=== PATIENT | female | born 1985 | race Hispanic/Latino ===

== ENCOUNTER 2019-08-26 18:17 | Observation (INO) | payer OTHER, SELFPAY ==
[2019-08-26 21:35] VITALS: BMI 44.4
[2019-08-26] MEDS ORDERED: Ibuprofen 800 MG TAB PO SCH (22:45)
[2019-08-26] MEDS ORDERED: Ondansetron ODT 4 MG TAB PO PRN (23:15)
[2019-08-27] MEDS: Sodium Chloride 0.9% 1,000 ML IV SCH ×3 (02:05→14:29)
[2019-08-27 02:14] VITALS: TEMP 97.8
--- NOTE | 2019-08-27 04:09 | PDOC.FPRHP ---
Addendum entered and electronically signed by Mehdi Tovar MD 08/27/19 04:11: carotids patent on CTA Original Note: - Allergies/Adverse Reactions Allergies Allergy/AdvReac Type Severity Reaction Status Date / Time No Known Allergies Allergy Verified 08/26/19 21:42 - Home Medications Medication Instructions Recorded Confirmed Type Ibuprofen [Motrin] 600 mg PO Q6HR PRN 08/26/19 08/26/19 History - History PMHx: PSHx: FHx: Social: - Vital signs BP: [] HR: [] RR: [] Tmax: [] Pox: []% on [] Wt: [] FMR H&P: Results - Labs Result Diagrams: 08/27/19 04:31 08/27/19 04:31 FMR H&P: Upper Level - Plan Date/Time: 08/27/19 0409 PCP: ELIANA HPI: This is a 33 yo F admitted for TIA r/o. She denies any significant PMH. She states that this afternoon she had sudden onset left-sided numbness affecting her face, arm, and leg. She denied any slurred speech or weakness. She states that she has been having this happening for 1-2 seconds for a week or so. Additionally, she has had headache coming and going for the last week or so, much improved after Tylenol and ibuprofen. Denies photophobia, N/V, or scotoma. She states she has had shortness of breath for about 2 weeks. Denies fever, sick contacts, loss of taste, or GI sypmtoms. PMH: denies HTN, DM PSH: denies surgeries Meds: none Allergies: NKDA Soc Hx: denies smoking, alcohol, drugs Fm hx: denies family history of stroke or heart disease REVIEW OF SYSTEMS: Gen: no fever, chills, or sweats Neuro: see hpi Eyes: no visual changes ENT: no hearing changes, no sore throat, no congestion Resp: denies cough, SOB Card: palpitations or chest pain GI: no N/V/D, no abdominal pain Heme: no easy bruising/bleeding, no blood thinners Skin: no rash, no erythema Vitals: T97.8 P78 BP 127/80 R 18 95 on RA PHYSICAL EXAMINATION: General: NAD, alert and oriented x3 HEENT: PERRLA, EOMI, normal sclera, oropharynx without erythema or exudate Neck: Supple. Full ROM. Heart/Cardiovascular System: RRR, Cap refill < 3 seconds, no rub, no murmur Lungs/Respiratory System: CTA-B, no resp distress Abdomen/Gastro-Intestinal System: no abdominal tenderness, normal bowel sounds Extremities: Warm extremities. No cyanosis or edema Neuro: No gross deficits appreciated. CN 2-12 grossly intact, NIHSS:0, strength intact bilaterally, no drift Psychiatry: Awake, Alert and cooperative with exam Skin: No lesions, rashes, or ulcers Musculoskeletal: Full ROM A/P: # TIA r/o - CTA brain negative - MRI ordered 2/2 suspicious history - No carotid bruit, low age, will not order carotid Doppler at this time - Risk stratification labs, ASA - Headache not consistent with migraine, well controlled with NSAIDS, Tylenol - Anxiety w/ panic disorder is on differential # COVID PUI - 2 weeks of SOB, low suspicion Fluids: NS 100ml/hr Code: Full PPx: scd Dispo: anticipate d/c home after MRI Addendum - Attending - Attending Attestation Date/Time: 08/27/19 2834 I personally evaluated the patient and discussed the management with Dr. Tovar. I agree with the History, Examination, Assessment and Plan documented above with any addition or exceptions noted below.
[2019-08-27 05:28] LABS: #Basophils 0.1 thou/uL (0.0-0.2); #Eosinphils 0.3 thou/uL (0.0-0.7); #Lymphocytes 3.8 thou/uL (1.20-3.40); #Monocytes 0.8 thou/uL (0.11-0.59); #Neutrophils 6.3 thou/uL (1.40-6.50); %Basophils 1.3 % (0.0-1.0); %Eosinophils 2.6 % (0.0-10.0); %Lymphocytes 33.4 % (21.0-51.0); %Monocytes 6.9 % (0.0-10.0); %Neutrophils 55.9 % (42.0-75.0); Hemoglobin 13.7 g/dL (12.0-16.0); Mean Corpuscular Hemoglobin 30.3 pg (27.0-31.0); Mean Corpuscular Volume 94.7 fL (78.0-98.0); Mean Platelet Volume 9.8 fL (7.4-10.4); Platelet Count 317 thou/uL (130-400); RBC Distribution Width 11.6 % (11.5-14.5); Red Blood Cell (RBC) Count 4.51 mill/uL (4.20-5.40); White Blood Cell (WBC) Count 11.4 thou/uL (4.8-10.8)
[2019-08-27 05:35] LABS: Hemoglobin A1c 5.2 % (4.0-6.0)
[2019-08-27 05:48] LABS: ALT (SGPT) 15 U/L (8-55); AST (SGOT) 13 U/L (5-34); Albumin 3.9 g/dL (3.5-5.0); Alkaline Phosphatase 61 U/L (40-110); Anion Gap 12 mmol/L (10-20); BUN (Urea Nitrogen) 9 mg/dL (7.0-18.7); Bilirubin, Total 0.3 mg/dL (0.2-1.2); Calc. Creatinine Clearance 254 mL/min (70-130); Calcium 9.1 mg/dL (7.8-10.44); Carbon Dioxide 27 mmol/L (22-29); Cardiac Risk 3.7 (Less than 4.5); Chloride 106 mmol/L (98-107); Cholesterol 146 mg/dl (< 200 Desired); Estimated GFR-MDRD Greater than 90; Globulin 2.8 g/dL (2.4-3.5); Glucose 87 mg/dL (70-105); HDL Cholesterol 39 mg/dL (>60 Neg Risk); LDL Cholesterol, Calculated 81 mg/dL; Potassium 3.7 mmol/L (3.5-5.1); Protein, Total 6.7 g/dL (6.0-8.3); Sodium 141 mmol/L (136-145); Triglycerides 128 mg/dL (Less than 150)
--- NOTE | 2019-08-27 07:20 | PDOC.FM ---
- Subjective Subjective: Patient reports her numbness and tingling is resolved. She feels well this morning. No other complaints overnight. - Objective Vital Signs & Weight: Vital Signs (12 hours) Temp Pulse Resp BP BP Pulse Ox 08/27/19 02:07 97.8 F 78 18 94/52 L 95 08/26/19 21:34 98.0 F 79 14 127/80 98 Weight Weight 128.548 kg I&O: 08/26/19 08/27/19 08/28/19 06:59 06:59 06:59 Intake Total 1454 Output Total 1400 Balance 54 Result Diagrams: 08/27/19 04:31 08/27/19 04:31 Phys Exam - Physical Examination Constitutional: NAD HEENT: PERRLA, moist MMs, oral pharynx no lesions Respiratory: no wheezing, clear to auscultation bilateral Cardiovascular: RRR, no significant murmur Gastrointestinal: soft, non-tender, positive bowel sounds obese Musculoskeletal: pulses present Neurological: non-focal, moves all 4 limbs Psychiatric: normal affect, A&O x 3 CN 2-12 grossly intact Skin: normal turgor, cap refill <2 seconds Dx/Plan (1) Person under investigation for COVID-19 Code(s): Z20.828 - CONTACT W AND EXPOSURE TO OTH VIRAL COMMUNICABLE DISEASES Status: Acute - Plan Plan: TIA r/o -L sided face/arm/leg numbness resolved, lasted 30 minutes yesterday -CTA head/neck neg -ASA -A1C normal, TSH slightly elevated, T4 pending; -FLP HDL low 39, otherwise WNL -Headache not consistent with migraine, no n/v, photophobia, or scotoma -High suspicion for anxiety, although pt denies history of anxiety/depression, she does state she has been nervous about coronavirus COVID PUI -2 weeks of SOB -Low suspicion Vitiligo -Pt reports no other autoimmune diseases in her family. Denies FH of DM or thyroid disease Fluids: SL Diet: HH Ppx: SCDs PCP: CC Dispo: Likely home after MRI results today Shelley Tovar MD Addendum - Attending - Attending Attestation Date/Time: 08/27/19 3948 I personally evaluated the patient and discussed the management with Dr. Tovar. I agree with the History, Examination, Assessment and Plan documented above with any addition or exceptions noted below. neurological deficits resolved. MRI pending. If negative, d/c home.
[2019-08-27] MEDS ORDERED: Potassium Chloride 20 MEQ TAB PO SCH (08:00)
[2019-08-27] MEDS ORDERED: Aspirin 81 mg Enteric Coated Tablet PO SCH (09:00)
[2019-08-27 10:11] LABS: SARS-CoV-2 MS2 Positive; SARS-CoV-2 N Gene Negative; SARS-CoV-2 S Gene Negative; SARS-CoV-2 orf1ab Negative
--- NOTE | 2019-08-27 13:09 | MRI ---
MRI OF THE BRAIN WITHOUT CONTRAST: Date: 08/27/2019 INDICATION: History of TIA. COMPARISON: Prior CT of the brain dated 08/26/2019. FINDINGS: No area of restricted diffusion is seen to suggest the presence of acute infarction. Septum pellucidu m and third ventricle are midline. There are appropriate flow-voids seen within the major intracrania l vessels. Small partial effusion is seen within the mastoid air cells. Skull is intact. IMPRESSION: 1. No acute intracranial abnormality. 2. Small partial effusions of the mastoid air cells. POS: BH
[2019-08-27 13:36] VITALS: BP 108/59
[2019-08-27] MEDS ORDERED: Atorvastatin Calcium 40 MG TAB PO SCH (21:00)
--- NOTE | 2019-08-28 11:40 | DIS ---
DATE OF ADMISSION: 08/26/2019 DATE OF DISCHARGE: 08/27/2019 RESIDENT: Jessica Tovar MD ADMITTING ATTENDING: Shirley Saunders MD DISCHARGE ATTENDING: Quinton Reynoso MD CONSULTS: None. PROCEDURES: Brain MRI on 08/27/2019. Impression: 1. No acute intracranial abnormality. 2. Small partial effusions of the mastoid air cells. PRIMARY DIAGNOSIS: Possible transient ischemic attack. SECONDARY DIAGNOSES: 1. COVID person under investigation. 2. Vitiligo. 3. Obesity. DISCHARGE MEDICATIONS: Ibuprofen 600 mg p.o. q.6 hours p.r.n. for pain or headache. DISCONTINUED MEDICATIONS: None. HISTORY OF PRESENT ILLNESS/HOSPITAL COURSE: This is a 33-year-old female, who was admitted for a TIA rule out. She denies any significant past medical history. She states that that afternoon she had sudden onset left-sided numbness affecting her face, arm and leg. She denied any slurred speech or weakness. She states that this has been happening for 1-2 seconds for a week or so. Additionally, the patient reported intermittent headache for the last two weeks that improved after Tylenol and ibuprofen. The patient denied photophobia, nausea, vomiting or scotoma. The patient reported shortness of breath for about two weeks. She denied fever, sick contacts, loss of taste, or GI symptoms. The patient was transferred from another hospital. There, she had a CTA of her head and neck that was negative. The patient was transferred here, where an MRI was done, which showed no acute abnormalities. Her headache was not consistent with migraines, so it is unlikely that this was a complex migraine. During her stay, her symptoms resolved. Her NIH was zero. Her symptoms were either due to TIA which is unlikely with a completely normal CTA head/neck vs possible anxiety vs conversion disorder vs other cause. The patient was also tested for COVID due to the two weeks of shortness of breath, which returned negative. The patient was discharged to home in stable condition. DISPOSITION: Stable. DISCHARGE INSTRUCTIONS: 1. Location: Home. 2. Diet: Heart healthy. 3. Activity: As tolerated. 4. Followup: With primary care doctor within 1 week. Job ID: [id number] [facility]
== END 2019-08-27 16:03 | disposition home or self-care (01) ==
LOC: 2SW 21:29
PROVIDERS: ADMIT Family Medicine; ATTEND Family Medicine
DX: R20.0 Anesthesia of skin (principal); R51 Headache; L80 Vitiligo; R06.02 Shortness of breath; E66.9 Obesity, unspecified; Z68.41 Body mass index [BMI] 40.0-44.9, adult; Z20.828 Contact with and (suspected) exposure to other viral communicable diseases
CPT/HCPCS: 36415; 70551; 80053; 80061; 83036; 84439; 84443; 85025; 87635; 96360; 96361; G0378; U0003

== ENCOUNTER 2019-09-03 08:58 | Observation (INO) | payer SELFPAY ==
[2019-09-03] MEDS ORDERED: Ondansetron PF 4 MG/2 ML Vial ONE (09:28)
[2019-09-03 09:52] LABS: #Basophils 0.1 thou/uL (0.0-0.2); #Eosinphils 0.4 thou/uL (0.0-0.7); #Lymphocytes 3.9 thou/uL (1.20-3.40); #Monocytes 0.6 thou/uL (0.11-0.59); #Neutrophils 4.9 thou/uL (1.40-6.50); %Basophils 1.3 % (0.0-1.0); %Eosinophils 3.7 % (0.0-10.0); %Lymphocytes 39.6 % (21.0-51.0); %Monocytes 5.9 % (0.0-10.0); %Neutrophils 49.6 % (42.0-75.0); Hemoglobin 14.2 g/dL (12.0-16.0); Mean Corpuscular HGB CONC 33.2 g/dL (32.0-36.0); Mean Corpuscular Hemoglobin 30.8 pg (27.0-31.0); Mean Corpuscular Volume 92.7 fL (78.0-98.0); Mean Platelet Volume 8.6 fL (7.4-10.4); Platelet Count 318 thou/uL (130-400); RBC Distribution Width 11.4 % (11.5-14.5); Red Blood Cell (RBC) Count 4.63 mill/uL (4.20-5.40); White Blood Cell (WBC) Count 9.9 thou/uL (4.8-10.8)
[2019-09-03 10:01] LABS: BHCG - Serum Negative (NEGATIVE); Pregs Control Background? CLEAR/WHITE (CLR/WHITE); Pregs Control Bar Appear? YES (CONTROL BAR)
[2019-09-03 10:02] LABS: Acetaminophen Less than 6.0 mcg/mL (10.0-30.0); Alcohol Less than 10 mg/dL (Less than 10); CK (CPK) 49 U/L (29-168); Salicylate Less than 8.0 mg/dL (15.0-30.0)
[2019-09-03 10:03] LABS: ALT (SGPT) 27 U/L (8-55); AST (SGOT) 17 U/L (5-34); Albumin 4.4 g/dL (3.5-5.0); Alkaline Phosphatase 73 U/L (40-110); Anion Gap 15 mmol/L (10-20); BUN (Urea Nitrogen) 9 mg/dL (7.0-18.7); Bilirubin, Total 0.2 mg/dL (0.2-1.2); Calc. Creatinine Clearance 0 mL/min (70-130); Calcium 9.4 mg/dL (7.8-10.44); Carbon Dioxide 25 mmol/L (22-29); Chloride 102 mmol/L (98-107); Estimated GFR-MDRD Greater than 90; Globulin 3.1 g/dL (2.4-3.5); Glucose 111 mg/dL (70-105); Potassium 3.5 mmol/L (3.5-5.1); Protein, Total 7.5 g/dL (6.0-8.3); Sodium 138 mmol/L (136-145)
[2019-09-03] MEDS ORDERED: Metoclopramide HCl 10 MG/2 ML VIAL ONE (10:07)
[2019-09-03] MEDS ORDERED: diphenhydrAMINE 50 MG/ML VIAL ONE (10:07)
[2019-09-03] MEDS ORDERED: Lorazepam 2 MG/ML VIAL ONE (10:32)
[2019-09-03 12:04] LABS: Bilirubin Negative (Negative); Blood, Urine Negative (Negative); Clarity Clear (Clear); Glucose, Urine (Dipstick) Normal (Negative); Leukocyte 25 Leu/uL (Negative); Nitrite Negative (Negative); Protein, Urine (Dipstick) Negative (Neg-Trace); RBC/HPF 0-3 HPF (0-3); Squamous Epithelial 0-3 HPF (0-3); Urobilinogen Normal mg/dL (Less than 2); WBC/HPF 0-3 HPF (0-3)
[2019-09-03 12:11] LABS: Bacteria/HPF 1+ HPF (None Seen)
[2019-09-03 12:13] LABS: Amphetamine Not Detected (NotDetected); Barbiturates Screen Not Detected (NotDetected); Benzodiazepine Screen Not Detected (NotDetected); Cocaine Metabolite Screen Not Detected (NotDetected); Medtox Control Line Valid? VALID (VALID); Medtox Reader # READER 1; Methadone Not Detected (NotDetected); Methamphetamine Not Detected (NotDetected); Opiate Screen Not Detected (NotDetected); Oxycodone Screen Not Detected (NotDetected); Phencyclidine (PCP) Not Detected (NotDetected); THC/Cannabinoid Screen Not Detected (NotDetected); Tricyclic Screen Not Detected (NotDetected)
[2019-09-03] MEDS ORDERED: Ketorolac Tromethamine 30 MG/ML VIAL ONE (12:55)
[2019-09-03] MEDS ORDERED: methylPREDNISolone Sod Succ/PF 125 MG/2 ML VIAL ONE (12:55)
[2019-09-03] MEDS ORDERED: Magnesium 2 GM/50 ML BAG (IN WATER) ONE (12:55)
--- NOTE | 2019-09-03 12:55 | CT ---
HEAD CT: Date: 09-03-2019 Comparison: 08-31-2019 History: Difficulty speaking and moving. Technique: Axial CT imaging is obtained at 5 mm intervals from vertex through skull base without cont rast. FINDINGS: There is no intracranial hemorrhage, midline shift, mass effect, or ventricular enlargement. The imaged paranasal sinuses and mastoid air cells are well aerated. There is no displaced calvarial fracture. IMPRESSION: No acute findings - stable head CT. POS: ZENOBIA
--- NOTE | 2019-09-03 12:56 | RAD ---
FRONTAL RADIOGRAPH CHEST: Date: 09-03-2019 Comparison: 08-26-2019 History: Difficulty speaking and moving. FINDINGS: Heart and mediastinal contours are stable. Lungs appear clear. IMPRESSION: No acute findings. POS: ZENOBIA
--- NOTE | 2019-09-03 13:31 | PDOC.FPRHP ---
- History of Present Illness Chief Complaint: AMS History of Present Illness: Pt is a 33 yo female who presents for altered mental status noted in the emergency department. In the ED she had difficulty answering questions and had dramatic/erratic arm movements. She has had a headache over the last 2-3 weeks. She was discharged from our facility at the beginning of this month for similar symptoms. Her brain CT and and MRI were negative. She was discharged from the ED on 08/31/[address] head. She was discharged with ibuprofen. CC - [facility] ED Course: CT head negative. - Allergies/Adverse Reactions Allergies Allergy/AdvReac Type Severity Reaction Status Date / Time No Known Allergies Allergy Verified 08/26/19 21:42 - Home Medications Medication Instructions Recorded Confirmed Type Ibuprofen [Motrin] 600 mg PO Q6HR PRN 08/26/19 08/26/19 History - History PMHx: none PSHx: none FHx: no hx of stroke or heart disease Social: denies smoking, alcohol, drugs - Vital signs BP: 128/85 HR: 78 RR: 20 Tmax: 98.7 Pox: 100% on RA Wt: 127.9 kg FMR H&P: Results - Labs Result Diagrams: 09/03/19 09:40 09/03/19 09:40 Lab results: WBC 9.9 thou/uL (4.8-10.8) 09/03/19 09:40 Hgb 14.2 g/dL (12.0-16.0) 09/03/19 09:40 Hct 42.9 % (36.0-47.0) 09/03/19 09:40 MCV 92.7 fL (78.0-98.0) 09/03/19 09:40 Plt Count 318 thou/uL (130-400) 09/03/19 09:40 Neutrophils % 49.6 % (42.0-75.0) 09/03/19 09:40 Sodium 138 mmol/L (136-145) 09/03/19 09:40 Potassium 3.5 mmol/L (3.5-5.1) 09/03/19 09:40 Chloride 102 mmol/L (98-107) 09/03/19 09:40 Carbon Dioxide 25 mmol/L (22-29) 09/03/19 09:40 BUN 9 mg/dL (7.0-18.7) 09/03/19 09:40 Creatinine 0.66 mg/dL (0.6-1.1) 09/03/19 09:40 Glucose 111 mg/dL (70-105) H 09/03/19 09:40 Calcium 9.4 mg/dL (7.8-10.44) 09/03/19 09:40 Total Bilirubin 0.2 mg/dL (0.2-1.2) 09/03/19 09:40 AST 17 U/L (5-34) 09/03/19 09:40 ALT 27 U/L (8-55) 09/03/19 09:40 Alkaline Phosphatase 73 U/L (40-110) 09/03/19 09:40 Creatine Kinase 49 U/L (29-168) 09/03/19 09:40 Serum Total Protein 7.5 g/dL (6.0-8.3) 09/03/19 09:40 Albumin 4.4 g/dL (3.5-5.0) 09/03/19 09:40 Urine Ketones Negative mg/dL (Negative) 09/03/19 11:57 Urine Blood Negative (Negative) 09/03/19 11:57 Urine Nitrite Negative (Negative) 09/03/19 11:57 Ur Leukocyte Esterase 25 Dandre/uL (Negative) 09/03/19 11:57 Urine RBC 0-3 HPF (0-3) 09/03/19 11:57 Urine WBC 0-3 HPF (0-3) 09/03/19 11:57 Ur Squamous Epith Cells 0-3 HPF (0-3) 09/03/19 11:57 Urine Bacteria 1+ HPF (None Seen) A 09/03/19 11:57 - Radiology Interpretation CT scan - head Status: image reviewed by me, report reviewed by me Additional comment: no acute abnormalities Chest x-ray Status: image reviewed by me, report reviewed by me Additional comment: no acute abnormalities FMR H&P: A/P - Problem List (1) Intractable headache Current Visit: Yes Status: Acute Code(s): R51 - HEADACHE - Plan Pt is a 33 yo female with hx of BECERRA x 2 weeks: # Intractable BECERRA # Encephalopathy Likely secondary to a complex migraine. # Recently tested for COVID - negative Dispo: admit to neuro, obs VTE: SCD's Diet: reg Fluids: SL Code: Full FMR H&P: Upper Level - Plan Date/Time: 09/03/19 1329 I, [], have evaluated this patient and agree with findings/plan as outlined by pharmacy grad intern resident. Pertinent changes/additions are listed here.
--- NOTE | 2019-09-03 14:18 | PDOC.FPRHP ---
- History of Present Illness Chief Complaint: Headache, AMS History of Present Illness: Patient is a 33 yo female who presents with complaint of headache that started when she woke up this morning. Pain mostly located behind right eye and in temples, constant in nature. Has "heavy sensation" in her head. Headache is worsened by light, accompanied by 1 episode of vomiting about 3 hours ago. She denies current nausea and actually feels hungry now. Patient stated earlier when the headache first started she felt weak on her right side with some numbness in her right arm & leg. These symptoms have since resolved since she arrived at the ED. Denies any inciting traumatic events, no new medications in last 2 weeks. Patient's sister also has frequent headaches. Of note, patient has had [address] in the past week. She was recently admitted last week and had an MRI head which was normal. She was discharged with diagnosis of complex migraine and given Rx for Ibuprofen 600 mg prn. Between hospital visits the patient did go to an outside ED, had negative head CT there and discharged with diagnosis of migraine and dizziness. ED Course: Administered Mg 2g, methylprednisilone 125 mg, Toradol 30 mg, Lorazepam 1 mg, metaclopramide 10 mg, benadryl 25 mg, 1 L fluids, zofran 4 mg - Allergies/Adverse Reactions Allergies Allergy/AdvReac Type Severity Reaction Status Date / Time No Known Allergies Allergy Verified 08/26/19 21:42 - Home Medications Medication Instructions Recorded Confirmed Type Ibuprofen [Motrin] 600 mg PO Q6HR PRN 08/26/19 09/03/19 History - History PMHx: denies PSHx: denies FHx: sister with headaches Social: denies tobacco, EtOH, or ilicit drug use NKDA - Review of Systems General: denies: fever/chills, weight/appetite/sleep changes, fatigue Eyes: denies: vision changes ENT: denies: nasal congestion Respiratory: denies: cough, congestion, shortness of breath Cardiovascular: denies: chest pain, palpitation, edema Gastrointestinal: reports: vomiting. denies: nausea, diarrhea, constipation, abdominal pain Genitourinary: denies: incontinence, dysuria Skin: denies: rashes, lesions, jaundice, itching Musculoskeletal: denies: pain, tenderness, swelling Neurological: reports: weakness. denies: numbness, syncope Psychological: denies: anxiety, depression - Vital signs BP: 148/108 HR: 87 RR: 19 Tmax: 98.7F Pox: 98% on RA Wt: 127 kg - Physical Exam Constitutional: NAD, awake, alert and oriented, well developed -Constitutional: answers questions appropriately HEENT: normocephalic and atraumatic, EOMI, conjunctiva clear, grossly normal vision, grossly normal hearing, MMM Neck: supple, trachea midline, no JVD Chest: no-tender to palpation, no lesions Heart: RRR, normal S1/S2, no murmurs/rubs/gallops, pulses present, no edema Lungs: CTAB, no respiratory distress, good air movement, no wheezing Abdomen: soft, bowel sounds present, no masses/distention Musculoskeletal: normal structure, normal tone, ROM grossly normal -Musculoskeletal: motor strength 5/5 in all extremities Neurological: no focal deficit, CN II-XII intact, normal sensation -Neurological: gross sensation intact and appropriate on both sides of face and in extremities Skin: no rash/lesions, no jaundice Heme/Lymphatic: no unusual bruising or bleeding Psychiatric: normal mood and affect, good judgment and insight, intact recent and remote memory FMR H&P: Results - Labs Result Diagrams: 09/03/19 09:40 09/03/19 09:40 Lab results: WBC 9.9 thou/uL (4.8-10.8) 09/03/19 09:40 Hgb 14.2 g/dL (12.0-16.0) 09/03/19 09:40 Hct 42.9 % (36.0-47.0) 09/03/19 09:40 MCV 92.7 fL (78.0-98.0) 09/03/19 09:40 Plt Count 318 thou/uL (130-400) 09/03/19 09:40 Neutrophils % 49.6 % (42.0-75.0) 09/03/19 09:40 Sodium 138 mmol/L (136-145) 09/03/19 09:40 Potassium 3.5 mmol/L (3.5-5.1) 09/03/19 09:40 Chloride 102 mmol/L (98-107) 09/03/19 09:40 Carbon Dioxide 25 mmol/L (22-29) 09/03/19 09:40 BUN 9 mg/dL (7.0-18.7) 09/03/19 09:40 Creatinine 0.66 mg/dL (0.6-1.1) 09/03/19 09:40 Glucose 111 mg/dL (70-105) H 09/03/19 09:40 Calcium 9.4 mg/dL (7.8-10.44) 09/03/19 09:40 Total Bilirubin 0.2 mg/dL (0.2-1.2) 09/03/19 09:40 AST 17 U/L (5-34) 09/03/19 09:40 ALT 27 U/L (8-55) 09/03/19 09:40 Alkaline Phosphatase 73 U/L (40-110) 09/03/19 09:40 Creatine Kinase 49 U/L (29-168) 09/03/19 09:40 Serum Total Protein 7.5 g/dL (6.0-8.3) 09/03/19 09:40 Albumin 4.4 g/dL (3.5-5.0) 09/03/19 09:40 Urine Ketones Negative mg/dL (Negative) 09/03/19 11:57 Urine Blood Negative (Negative) 09/03/19 11:57 Urine Nitrite Negative (Negative) 09/03/19 11:57 Ur Leukocyte Esterase 25 Dandre/uL (Negative) 09/03/19 11:57 Urine RBC 0-3 HPF (0-3) 09/03/19 11:57 Urine WBC 0-3 HPF (0-3) 09/03/19 11:57 Ur Squamous Epith Cells 0-3 HPF (0-3) 09/03/19 11:57 Urine Bacteria 1+ HPF (None Seen) A 09/03/19 11:57 - Radiology Interpretation CT scan - head Status: report reviewed by me (no acute findings) Additional comment: no acute abnormalities Chest x-ray Status: image reviewed by me, report reviewed by me Additional comment: no acute abnormalities FMR H&P: A/P - Problem List (1) Intractable headache Current Visit: Yes Status: Acute Code(s): R51 - HEADACHE Qualifiers: Headache type: unspecified Headache chronicity pattern: chronic headache Qualified Code(s): R51 - Headache - Plan # Intractable BECERRA w/ sensory deficits to R side now improved Previously had [address] scans and MRI in the last week. Neg CT scan today. Found to be altered in the ED but has since improved on my exam. She states sensory deficits resolved with medication - unsure which medication. - Neuro consulted, appreciate rec's - consider initiating verapamil vs metoprolol # Elevated TSH - reflex T3/T4 Diet: regular VTE: SCDs Code status: FULL Dispo: Stable, admit to obs on stroke unit. Continue neuro checks q4h. Consult Neurology, appreciate recs. Anticipate LOS < 48 hrs. FMR H&P: Upper Level - Plan Date/Time: 09/03/19 1418 I, Sergio Tyler, DO PGY3, have evaluated this patient and agree with findings/ plan as outlined by recruitment internship resident. Pertinent changes/additions are listed here. 33 yo F here with complaint of headache and R sided weakness. She was recently admitted for similar symptoms about 1 week ago, however at that time her symptoms were left sided. MRI and CTA were both normal during last admission. Lab abnormalities during last admission included elevated TSH, c/w todays results. CT brain today is unchanged from previous. Upon exam today pt states that her symptoms have resolved after getting Benadryl, methylprednisolone, mgso4, toradol, and Ativan in the ER. Exam shows no neuro deficits and is overall normal. This is most likely a complex migraine, however patient is uncomfortable going home, therefore we will admit for obs. Will also consult neuro for further eval given repeat admits for similar symptoms Addendum - Attending - Attending Attestation Date/Time: 09/03/19 5070 I personally evaluated the patient and discussed the management with Dr. Jackson /Nayeli. I agree with the History, Examination, Assessment and Plan documented above with any addition or exceptions noted below. Patient here for transient neuro deficits in setting of headache with photophobia. Deficits resolved with resolution of headache. She has previously had CT brain and MRI brain that were non revealing. Suspect this is complicated migraine but will have neurology evaluate patient. Hopeful discharge tomorrow on PO control meds pending clinical course.
[2019-09-03 15:45] LABS: Free T4 (Free Thyroxine) 0.94 ng/dL (0.70-1.48)
[2019-09-03 16:18] VITALS: BMI 44.4
--- NOTE | 2019-09-03 17:14 | CON ---
NEUROLOGY CONSULTATION DATE OF CONSULTATION: 09/03/2019 HISTORY OF PRESENT ILLNESS: Headache/complicated migraine. HISTORY OF PRESENT ILLNESS: Ms. Melgoza is a 33-year-old female who presented with severe headache that started early in the morning. The headache started from the right side of the head. She has a heavy sensation in head, which was associated with photophobia, phonophobia with nausea and one episode of vomiting. She also has focal paresthesias in her right upper and lower extremities, which resolved at this time. The patient has been having these symptoms off and on since the last 2 weeks. She had an MRI of brain done, which was negative. She also had 3 EEGs done. She had head CTs done. She was discharged last time with the diagnosis of complex migraine and was given ibuprofen 600 mg p.r.n. The patient describes the headache as sharp pain on the right, which is currently 7/10. She has already received a headache cocktail. At this time, denies nausea, vomiting, photophobia, or phonophobias. In the emergency room, she received magnesium 2 g , methylprednisolone 125 mg, Toradol 30 mg, lorazepam 1 mg, metoclopramide 10 mg, Benadryl 25 mg with 1 L of IV fluids, and Zofran 4 mg. HOME MEDICATIONS: Ibuprofen 600 mg p.o. p.r.n. PAST MEDICAL HISTORY: Headaches, off and on for the last 2 weeks. PAST SURGICAL HISTORY: None. FAMILY HISTORY: Sister also has a history of migraine. SOCIAL HISTORY: Denies smoking, alcohol, or illegal drug use. - Allergies/Adverse Reactions Allergies Allergy/AdvReac Type Severity Reaction Status Date / Time No Known Allergies Allergy Verified 08/26/19 21:42 - Home Medications Medication Instructions Recorded Confirmed Type Ibuprofen [Motrin] 600 mg PO Q6HR PRN 08/26/19 09/03/19 History - Review of Systems General: denies: fever/chills, weight/appetite/sleep changes, fatigue Eyes: denies: vision changes ENT: denies: nasal congestion Respiratory: denies: cough, congestion, shortness of breath Cardiovascular: denies: chest pain, palpitation, edema Gastrointestinal: reports: vomiting. denies: nausea, diarrhea, constipation, abdominal pain Genitourinary: denies: incontinence, dysuria Skin: denies: rashes, lesions, jaundice, itching Musculoskeletal: denies: pain, tenderness, swelling Neurological: reports: weakness. denies: numbness, syncope Psychological: denies: anxiety, depression - Vital signs BP: 148/108 HR: 87 RR: 19 Tmax: 98.7F Pox: 98% on RA Wt: 127 kg - Physical Exam Constitutional: NAD, awake, alert and oriented, well developed HEENT: normocephalic and atraumatic, EOMI, conjunctiva clear, grossly normal vision, grossly normal hearing Neck: supple, trachea midline, no JVD Chest: no-tender to palpation, no lesions Heart: RRR, normal S1/S2, no murmurs/rubs/gallops, pulses present, no edema Lungs: CTAB, no respiratory distress, good air movement, no wheezing Abdomen: soft, bowel sounds present, no masses/distention Neurological:Mental status, the patient is alert and oriented to person, place, and time. Speech is clear. She follows commands appropriately. Motor, muscle tone and bulk are normal. Strength 5/5 bilaterally. Sensory intact. Motor, muscle reflexes symmetric bilaterally. Cerebellar, finger-nose testing intact. Cranial nerves 2 through 12 intact. Gait deferred due to the patient's safety reasons. Skin: no rash/lesions, no jaundice Heme/Lymphatic: no unusual bruising or bleeding Psychiatric: normal mood and affect 09/03/19 09:40 Lab results: WBC 9.9 thou/uL (4.8-10.8) 09/03/19 09:40 Hgb 14.2 g/dL (12.0-16.0) 09/03/19 09:40 Hct 42.9 % (36.0-47.0) 09/03/19 09:40 MCV 92.7 fL (78.0-98.0) 09/03/19 09:40 Plt Count 318 thou/uL (130-400) 09/03/19 09:40 Neutrophils % 49.6 % (42.0-75.0) 09/03/19 09:40 Sodium 138 mmol/L (136-145) 09/03/19 09:40 Potassium 3.5 mmol/L (3.5-5.1) 09/03/19 09:40 Chloride 102 mmol/L (98-107) 09/03/19 09:40 Carbon Dioxide 25 mmol/L (22-29) 09/03/19 09:40 BUN 9 mg/dL (7.0-18.7) 09/03/19 09:40 Creatinine 0.66 mg/dL (0.6-1.1) 09/03/19 09:40 Glucose 111 mg/dL (70-105) H 09/03/19 09:40 Calcium 9.4 mg/dL (7.8-10.44) 09/03/19 09:40 Total Bilirubin 0.2 mg/dL (0.2-1.2) 09/03/19 09:40 AST 17 U/L (5-34) 09/03/19 09:40 ALT 27 U/L (8-55) 09/03/19 09:40 Alkaline Phosphatase 73 U/L (40-110) 09/03/19 09:40 Creatine Kinase 49 U/L (29-168) 09/03/19 09:40 Serum Total Protein 7.5 g/dL (6.0-8.3) 09/03/19 09:40 Albumin 4.4 g/dL (3.5-5.0) 09/03/19 09:40 Urine Ketones Negative mg/dL (Negative) 09/03/19 11:57 Urine Blood Negative (Negative) 09/03/19 11:57 Urine Nitrite Negative (Negative) 09/03/19 11:57 Ur Leukocyte Esterase 25 Dandre/uL (Negative) 09/03/19 11:57 Urine RBC 0-3 HPF (0-3) 09/03/19 11:57 Urine WBC 0-3 HPF (0-3) 09/03/19 11:57 Ur Squamous Epith Cells 0-3 HPF (0-3) 09/03/19 11:57 Urine Bacteria 1+ HPF (None Seen) A 09/03/19 11:57 - Radiology Interpretation CT scan - head Status: report reviewed by me (no acute findings) Additional comment: no acute abnormalities Chest x-ray Status: image reviewed by me, report reviewed by me Additional comment: no acute abnormalities A/P - Problem List (1) Intractable headache Current Visit: Yes Status: Acute Code(s): R51 - HEADACHE Qualifiers: Headache type: unspecified Headache chronicity pattern: chronic headache Qualified Code(s): R51 - Headache DATA REVIEWED: I reviewed the labs which were essentially unremarkable except for a glucose of 111. I reviewed the head CT, which was negative for acute intracranial pathology. I reviewed the prior MRI, which was also negative. ASSESSMENT AND PLAN: Ms. Melgoza is a 33-year-old female with complicated migraine associated with sensory deficits which are now resolved. Based on the review of the imaging from MRI last week and also the CT scan, there is no need to repeat the imaging at this time. Consider headache cocktail 3 to 4 days until the headache resolves. She needs prophylactic headache medication on a daily basis. Continue home medications. Continue medical management per primary team. Continue neuro checks every 4 hours. She should be followed up for headache management as an outpatient. The patient was seen in the emergency room, and the plan was discussed with the primary attending, Dr. Jackson. Thank you for the consult. Job ID: [id number] MTDD
[2019-09-03] MEDS: Prochlorperazine Edisylate 10 MG in Sodium Chloride 0.9% 50 ML IVPB SCH (18:46)
[2019-09-03] MEDS: Metoclopramide HCl 10 MG/2 ML VIAL IVP SCH (18:46)
[2019-09-04] MEDS: Ketorolac Tromethamine 30 MG/ML VIAL IVP SCH ×3 (01:23→11:34)
[2019-09-04] MEDS: Prochlorperazine Edisylate 10 MG in Sodium Chloride 0.9% 50 ML IVPB SCH ×3 (01:23→12:36)
[2019-09-04] MEDS: Metoclopramide HCl 10 MG/2 ML VIAL IVP SCH ×3 (01:23→11:34)
--- NOTE | 2019-09-04 07:07 | PDOC.FM ---
- Subjective Subjective: Patient reports that her headache is resolved. Her sister has a history of migraines. States that she does not remember a portion of yesterday from EMS to the ED. Denies confusion this morning. Reports her numbness of Rt arm/leg and Rt sided numbness have resolved, as well as her difficulty talking. - Objective Vital Signs & Weight: Vital Signs (12 hours) Temp Pulse Resp BP BP BP BP 09/04/19 06:11 69 127/70 140/80 114/45 L 09/04/19 03:12 97.9 F 72 20 123/56 L 09/03/19 23:24 98.4 F 96 20 101/54 L 09/03/19 20:42 97.9 F 109 H 20 136/70 Pulse Ox 09/04/19 06:11 09/04/19 03:12 92 L 09/03/19 23:24 93 L 09/03/19 20:42 96 Weight Weight 128.684 kg I&O: 09/03/19 09/04/19 09/05/19 06:59 06:59 06:59 Intake Total 932 Balance 932 Result Diagrams: 09/03/19 09:40 09/03/19 09:40 Phys Exam - Physical Examination Constitutional: NAD HEENT: moist MMs, sclera anicteric, oral pharynx no lesions Neck: no nodes, supple Respiratory: no wheezing, clear to auscultation bilateral Cardiovascular: RRR, no significant murmur Gastrointestinal: soft, non-tender Musculoskeletal: no edema Neurological: non-focal, normal sensation, moves all 4 limbs CN 2-12 intact Psychiatric: normal affect, A&O x 3 Skin: no rash, normal turgor, cap refill <2 seconds Dx/Plan (1) Migraine Code(s): G43.909 - MIGRAINE, UNSP, NOT INTRACTABLE, WITHOUT STATUS MIGRAINOSUS Status: Acute - Plan Plan: #Complex Migraine -Endorses Headache with nausea/photophobia/phonophobia w/ sensory and strength deficits to R side, resolved -UDS neg -Previously had [address] scans and MRI in the last week. Neg CT scan this admission. Found to be altered in the ED and has some memory loss from yesterday. She states sensory deficits resolved. - Neuro consulted, appreciate recs -EEG pending - start migraine ppx with amitriptyline qhs # Elevated TSH - slightly elevated at 7, however recently TSH was normal within the last week, T4 normal; likely transient elevation, recommend repeat outpatient Diet: regular VTE: SCDs Code status: FULL PCP: ELIANA Dispo: Stable, admitted to obs on stroke unit. Continue neuro checks q4h. Consult Neurology, appreciate recs. Anticipate discharge likely later today. Addendum - Attending - Attending Attestation Date/Time: 09/04/19 0984 I personally evaluated the patient and discussed the management with Dr. Marjorie Tovar. I agree with the History, Examination, Assessment and Plan documented above with any addition or exceptions noted below. Patient improved, will discuss with Neuro the best regimen for preventative migraine therapy. Likely d/c home today after EEG report.
[2019-09-04 11:44] VITALS: BP 129/68; TEMP 98.6
--- NOTE | 2019-09-04 12:26 | PDOC.HOSPP ---
- Subjective Encounter Date: 09/04/19 Subjective: NEUROLOGY PROGRESS NOTE Headache resolved and also focal deficits . Most likely complicated migraine. - Objective Vital Signs & Weight: Vital Signs (12 hours) Temp Pulse Resp BP BP BP BP 09/04/19 11:11 98.6 F 89 16 129/68 09/04/19 07:37 97.6 F 76 16 105/48 L 09/04/19 06:11 69 127/70 140/80 114/45 L 09/04/19 03:12 97.9 F 72 20 123/56 L Pulse Ox 09/04/19 11:11 95 09/04/19 07:37 96 09/04/19 06:11 09/04/19 03:12 92 L Weight Weight 283 lb 11.2 oz I&O: 09/03/19 09/04/19 09/05/19 06:59 06:59 06:59 Intake Total 932 Balance 932 Result Diagrams: 09/03/19 09:40 09/03/19 09:40 Radiology Reviewed by me: Yes EKG Reviewed by me: Yes Hospitalist ROS - Review of Systems Constitutional: denies: fever, chills, sweats, weakness, malaise, other Eyes: denies: pain, vision change, conjunctivae inflammation, eyelid inflammation, redness, other ENT: denies: ear pain, ear discharge, nose pain, nose discharge, nose congestion , mouth pain, mouth swelling, throat pain, throat swelling, other Respiratory: denies: cough, dry, shortness of breath, hemoptysis, SOB with excertion, pleuritic pain, sputum, wheezing, other Cardiovascular: denies: chest pain, palpitations, orthopnea, paroxysmal noc. dyspnea, edema, light headedness, other Gastrointestinal: denies: nausea, vomiting, abdominal pain, diarrhea, constipation, melena, hematochezia, other Genitourinary: denies: dysuria, frequency, incontinence, hematuria, retention, other Musculoskeletal: denies: neck pain, shoulder pain, arm pain, back pain, hand pain, leg pain, foot pain, other Skin: denies: rash, lesions, js, bruising, other Neurological: denies: weakness, numbness, incoordination, change in speech, confusion, seizures, other - Medication Medications: Active Medications Generic Name Dose Route Start Last Admin Trade Name Freq PRN Reason Stop Dose Admin Prochlorperazine Edisylate 10 52 mls @ 150 mls/hr 09/03/19 18:00 09/04/19 06: 24 mg/ Sodium Chloride IVPB 52 mls Q6HR CHAPIS Administration Ketorolac Tromethamine 30 mg 09/03/19 23:59 09/04/19 11:34 Toradol IVP 09/08/19 23:59 30 mg Q6HR CHAPIS Administration Metoclopramide HCl 10 mg 09/03/19 18:00 09/04/19 11:34 Reglan IVP 10 mg Q6HR CHAPIS Administration - Exam General Appearance: awake alert Eye: PERRL ENT: normocephalic atraumatic, no oropharyngeal lesions Neck: supple Heart: RRR Respiratory: CTAB Gastrointestinal: soft Extremities: no cyanosis Skin: normal turgor Neurological: cranial nerve grossly intact, normal sensation to touch, no weakness, no focal deficits, no new deficit Musculoskeletal: normal tone, normal strength, no muscle wasting Psychiatric: normal affect, normal behavior, A&O x 3, oriented to person, oriented to place, oriented to time Hosp A/P (1) Intractable headache Code(s): R51 - HEADACHE Status: Acute Qualifiers: Headache type: unspecified Headache chronicity pattern: chronic headache Qualified Code(s): R51 - Headache (2) Migraine Code(s): G43.909 - MIGRAINE, UNSP, NOT INTRACTABLE, WITHOUT STATUS MIGRAINOSUS Status: Acute - Plan old records reviewed/req, out of bed/ambulate 33 year old with complicated migraine which is resolved with headache cocktail. Discontinue headache cocktail. Consider amitriptyline for BECERRA prophylaxis, EEG completed. Will follow up on read. Neurochecks every 4 hours, Continue home medications. Continue medical management per primary team Follow up with neurology as outpatient for migraine management. Plan discussed with the patient and the primary attending.
--- NOTE | 2019-09-04 14:46 | EEG ---
Referring Physician: Bebo CANDELARIA EEG # [id number] TEST TYPE: CONTINUOUS EXTENDED VIDEO EEG REPORT: This EEG was performed using 24 channel [employer] video digital EEG machine with 24 disc electrodes. This was an extended 2 hour 5 minutes of inpatient video EEG recording. Digital analysis of the EEG was done for spike and seizure detection which revealed no abnormalities. BACKGROUND: The posterior background rhythm is 8.5-9 hertz. The background rhythm attenuates with eye opening and enhances with eye closure. HYPERVENTILATION: No significant response seen with hyperventilation. PHOTIC STIMULATION: Bioccipital symmetric driving response is observed. SLEEP: Drowsiness and sleep are observed. EEG DIAGNOSIS: NORMAL AWAKE, DROWSY AND ASLEEP EEG. Casting Room Operator: BRAD Manager Solution: [email or web address]
[2019-09-04] MEDS ORDERED: Amitriptyline HCl 10 MG TAB PO SCH (21:00)
--- NOTE | 2019-09-05 10:59 | DIS ---
DATE OF ADMISSION: 09/03/2019 DATE OF DISCHARGE: 09/04/2019 CONSULTS: Neurology, Dr. Quinn on 09/03/19. PROCEDURES: Brain CT 09/03/19: No acute findings. Stable head CT. Chest x-ray 09/03/19: Impressio, no acute finding. Electrophysiology procedure 09/04/19: Normal awake, drowsy, and asleep EEG. PRIMARY DIAGNOSIS: Complex migraine. SECONDARY DIAGNOSIS: Elevated TSH. DISCHARGE MEDICATION: 1. Amitriptyline 10 mg p.o. at bedtime. 2. Ibuprofen 600 mg p.o. q.6 hours p.r.n. for pain or headache. DISCONTINUED MEDICATIONS: None. HISTORY OF PRESENT ILLNESS/HOSPITAL COURSE: This is a 33-year-old female who is obese, who presented with complaint of headache that started the morning of presentation behind the right eye and in the anglican that was constant. Headache is worsened by light accompanied by an episode of vomiting. She reports that when the headache started, she began feeling weak in the right side with numbness in her right arm and leg. Her symptoms resolved when actually she arrived to the ED. The patient reports her sister has diagnosis of migraines. The patient has had three negative head CTs in the past week and a MRI of her head which was normal. In the ED, she was administered magnesium, methylprednisolone, Toradol, lorazepam, metoclopramide, Benadryl, 1 L of fluids and Zofran. Urine drug screen was negative. Neuro was consulted and performed an EEG which was normal. As the patient had a recent MRI, there is no need to repeat it. We started her on amitriptyline 10 mg at bedtime for migraine prophylaxis. The patient had elevated TSH at 7. However, she had a recent TSH in the last hospital admission earlier this week with a T4 that was normal. This is likely a transient elevation and recommend a repeat outpatient. DISPOSITION: Stable. DISCHARGE INSTRUCTIONS: 1. Location: Home. 2. Diet: Regular. 3. Activity: As tolerated. 4. Follow up with PCP to establish care. Information given for [facility]. Job ID: [id number]
== END 2019-09-04 14:18 | disposition home or self-care (01) ==
LOC: ERS 08:58 → 2SE 16:10
PROVIDERS: ADMIT Student in an Organized Health Care Education/Training Program; ATTEND Student in an Organized Health Care Education/Training Program
DX: G43.109 Migraine with aura, not intractable, without status migrainosus (principal); R94.6 Abnormal results of thyroid function studies
CPT/HCPCS: 36415; 70450; 71045; 80053; 80306; 80307; 81003; 81015; 82550; 84439; 84443; 84481; 84703; 85025; 85652; 95712; 95816; 95819; 95957; 96365; 96367; 96375; 96376; G0378; J0780; J1200; J1885; J2060; J2405; J2765; J2930; J3475